=== PATIENT | male | born 1960 | race Caucasian/White ===

== ENCOUNTER 2023-08-15 15:03 | Emergency (ER) | payer OTHER ==
[~2023-08-15] VITALS: Ht 170.2 cm; Wt 63.6 kg
[2023-08-15 15:07] VITALS: BP 121/88; PULSE 88; RESP 18; TEMP 98.7
[2023-08-15] MEDS ORDERED: LIDOCAINE 2%/EPI 1:200,000/PF 10 ML VIAL SQ ONE (16:15)
[2023-08-15] MEDS ORDERED: PERTUSS(ACELL),DIPH,TET VAC/PF 0.5 ML SYRINGE IM. ONE (16:15)
[2023-08-15] MEDS ORDERED: LIDOCAINE 2%/EPI 1:200,000/PF 20 ML VIAL SQ ONE (16:15)
[2023-08-15] MEDS ORDERED: CLINDAMYCIN 600 MG/D5% WATER 50 ML IV ONE (16:15)
[2023-08-15] MEDS ORDERED: CLINDAMYCIN HCL 150 MG CAPSULE PO ONE (16:30)
[2023-08-15] MEDS ORDERED: CLIN-142 PO (16:49)
== END 2023-08-15 17:07 | disposition home or self-care (01) ==
LOC: EMS 15:08
DX: L03.113 Cellulitis of right upper limb (principal)
CPT/HCPCS: 99283; 73130; 90715; 90471; J3490